=== PATIENT | female | born 1985 | race Caucasian/White ===

== ENCOUNTER 2017-09-25 13:40 | Emergency (ER) | payer OTHER ==
[~2017-09-25] VITALS: Ht 160 cm; Wt 70.3 kg
[~2017-09-25 13:40] MED LIST: APAP500; MACROBID 100 M100 M1 PO; ONDANSETRON ODT4 MG PO; PRENATAL PLUS1 EAC3 PO
[2017-09-25] MEDS ORDERED: BACTROBAN CREAM30 G1 TOP (14:58)
[2017-09-25] MEDS ORDERED: MEDROLDOSEPACK PO (14:58)
[2017-09-25 16:19] VITALS: BP 133/73
== END 2017-09-25 15:50 | disposition home or self-care (01) ==
LOC: ER 13:40
DX: R21 Rash and other nonspecific skin eruption (principal); R20.2 Paresthesia of skin; Z87.01 Personal history of pneumonia (recurrent); F17.210 Nicotine dependence, cigarettes, uncomplicated; Z88.0 Allergy status to penicillin